=== PATIENT | female | born 1950 | race Caucasian/White ===

== ENCOUNTER 2020-07-18 14:41 | Emergency (ER) | payer MEDICARE, SELFPAY ==
[2020-07-18 14:45] VITALS: BP 134/76; PULSE 76; RESP 19; TEMP 36.6; O2SAT 100; BMI 18.8
[2020-07-18 15:09] LABS: Apearance,Urine Clear (Clear); Bilirubin,Urine Negative (Negative); Blood, Urine Negative (Negative); Color,Urine Yellow (Yellow); Glucose,Urine (UA) Negative (Negative); Ketones,Urine Negative (Negative); Protein,Urine Negative (Negative); UTC Leukocyte Esterase,Urine Negative (Negative); UTC Nitrate,Urine Negative (Negative); Urobilinogen,Urine 0.2 EU/dl (0.2)
--- NOTE | 2020-07-18 15:45 | HMH.EDUTC ---
[facility] Disposition Clinical Impression: Sinusitis Qualifiers: Sinusitis location: unspecified location Chronicity: unspecified Qualified Code(s): J32.9 - Chronic sinusitis, unspecified Disposition: Home, Self-Care Condition on Discharge: Good Instructions: Sinusitis, DI for Sinusitis, Azithromycin Additional Instructions: *Monitor Temp, Over the counter Motrin or Tylenol as directed/as needed Tylenol every 4 hours and Motrin every 6 hours (as long as your family doctor has told you that you can take it) for fever or pain. and straight to ER if unable to lower temp less than 101.0 after medication given *Warm salt water gargles may help to soothe the throat *Throat Lozenges *Warm fluids like tea with honey may help to soothe the throat *Sleep elevated *Humidifier/Vaporizer Make sure to drink plenty of fluids Return if needed Follow up IMMEDIATELY for new or worsening symptoms or no Noticeable improvement over the next 48-72 hours. 911 for difficulty breathing or swallowing Prescriptions: predniSONE [Deltasone 10mg tablet] 10 mg PO DAILY 5 Days #5 tab Transmission Status: Pending to [id number] Azithromycin [Z-Benny 250mg Tab] 250 mg PO DIRECTED #6 tab Transmission Status: Pending to [id number] Referrals: Provider,Referral, [Primary Care Provider] - As needed Time of Disposition: 15:55 Medical Decision Making - Tray Inquiry Pt receiving controlled substance: No Tray was queried for this patient: No Vital Signs: 07/18/20 14:45 Temperature 97.8 F Temperature Source Oral Pulse Rate [Right Brachial] 76 Respiratory Rate 19 Blood Pressure [Right Arm] 134/76 Blood Pressure Mean [Right Arm] 95 Blood Pressure Source [Right Arm] Automatic Cuff Blood Pressure Position [Right Arm] Sitting 02 Sat by Pulse Oximetry 100 Oxygen Delivery Method Room Air - Lab Data Lab results reviewed: Yes: I reviewed the patient's lab results. Lab Results 07/18/20 14:55: Urine Color Yellow, Urine Appearance Clear, Urine pH 6.0, Ur Specific [place] 1.010, Urine Protein Negative, Urine Glucose (UA) Negative, Urine Ketones Negative, Urine Blood Negative, Urine Nitrate Negative, Urine Bilirubin Negative, Urine Urobilinogen 0.2, Ur Leukocyte Esterase Negative Medical Decision Narrative: Patient states that she has taken a zpack and steriods recently without reactions or complications [facility] HPI - General Stated complaint: possible bladder infection and possibe sinus infec Time Seen by Provider: 07/18/20 15:46 Mode of Arrival: Ambulatory Source of Information: Patient Limitations: No Limitations Description of Symptoms (Recalled from Triage Doc. by RN): PATIENT C/O POSSIBLE SINUS AND BLADDER INFECTION X 3 DAYS HEENT Symptoms (Recalled from RN notes): Yes Resp Symptoms (Recalled from RN notes): No Skin Symptoms (Recalled from RN notes): No MS Symptoms (Recalled from RN notes): No Functional Status (Recalled from RN notes): WNL - History of Present Illness Provider Complaint: Patient states that she has been having sinus congestion and pressure for a couple of weeks and thought it was just allergies but over the last few days it has got worse and she is having pressure behind her eyes like she has had with sinus infection State that also she noticed she was having some burning with urination and wanted to get checked for UTI - Related Data Previous Rx's Medication Instructions Recorded Azithromycin [Z-Benny 250mg Tab] 250 mg PO DIRECTED #6 tab 07/18/20 predniSONE [Deltasone 10mg tablet] 10 mg PO DAILY 5 Days #5 tab 07/18/20 Allergies Allergy/AdvReac Type Severity Reaction Status Date / Time nitrofurantoin Allergy Verified 07/18/20 15:12 [From Macrobid] - Worker's Comp Is this a Worker's Comp case?: No [facility] History - Hepatitis A Screen Drug use history?: No High risk sexual behaviors?: No History of sexually transmitted infection?: No Currently employed?: No [employer]
[2020-07-18 16:00] VITALS: BP 134/76; PULSE 76; RESP 16; TEMP 36.6; O2SAT 100
== END 2020-07-18 16:01 | disposition home or self-care (01) ==
PROVIDERS: Emergency Provider Nurse Practitioner
DX: J32.9 Chronic sinusitis, unspecified (principal)
CPT/HCPCS: G0463; 81003; 99202

== ENCOUNTER → 2020-07-25 10:53 | Outpatient (CLI) | payer MEDICARE, SELFPAY ==
[2020-07-25 12:02] LABS: Free T4 (Free Thyroxine) 1.08 ng/dl (0.78-2.19)
[2020-07-26 08:43] LABS: DHEA-Sulfate 24.5 ug/dL (20.4-186.6); Estradiol 17.2 pg/mL (.); Progesterone 1.6 ng/mL (.); Triiodothyronine (T3) Free 3.5 pg/mL (2.0-4.4)
[2020-07-28 12:23] LABS: Testosterone, Total, LC/MS 90.9 ng/dL (7.0-40.0); Testosterone,Free 1.1 pg/mL (0.0-4.2)
== END ==
PROVIDERS: Visit Provider Family Medicine
DX: E03.9 Hypothyroidism, unspecified (principal)
CPT/HCPCS: 36415; 82626; 82670; 84144; 84402; 84403; 84439; 84443; 84481

== ENCOUNTER 2020-07-26 11:24 | Emergency (ER) | payer MEDICARE, SELFPAY ==
[2020-07-26] VITALS (7 sets, daily range): BP systolic 138–183; BP diastolic 68–90; PULSE 67–85; RESP 14–18; TEMP 36.4–36.7; O2SAT 98–100; BMI 18.8
--- NOTE | 2020-07-26 11:37 | HMH.EDGENADL ---
ED Disposition Clinical Impression: Fatigue Qualifiers: Fatigue type: chronic, unspecified Qualified Code(s): R53.82 - Chronic fatigue, unspecified Depression Qualifiers: Depression Type: unspecified Qualified Code(s): F32.9 - Major depressive disorder, single episode, unspecified Disposition: Home, Self-Care Condition on Discharge: Good Instructions: DI for Fatigue, DI for Depression -- Adult Additional Instructions: Follow-up with Татьяна Salazar for depression, call for appointment. Follow-up with a primary care provider, call for appointment. You are being provided with a list of physicians available for follow-up of your condition. Please call a physician on this list to arrange a follow-up appointment as soon as possible. Referrals: Provider,Referral, [Primary Care Provider] - Татьяна Salazar APRN [Nurse Practitioner] - - Critical Care Critical Care Time: No Attestation: On 07/26/20, the high probability of a clinically significant, sudden or life threatening deterioration of the following system(s) required my full and direct attention, intervention and personal management. The time I documented below is in addition to time spent performing reported procedures but includes the following listed in this critical care notation. Medical Decision Making - Tray Inquiry Pt receiving controlled substance: No Vital Signs: 07/26/20 11:25 07/26/20 11:33 07/26/20 12:22 Temperature 97.6 F Temperature Source Oral Pulse Rate 85 76 Pulse Rate [Right] 80 Respiratory Rate 18 14 Blood Pressure 183/84 H 152/76 H Blood Pressure [Right Arm] 181/82 H Blood Pressure Mean [Right Arm] 115 Blood Pressure Source Automatic Cuff Blood Pressure Position Sitting 02 Sat by Pulse Oximetry 98 98 98 Oxygen Delivery Method Room Air Room Air Room Air - Lab Data Lab Results 07/26/20 12:05: WBC 6.9, RBC 4.64, Hgb 15.1, Hct 44.0, MCV 94.7, MCH 32.6 H, MCHC 34.4, RDW 12.7, Plt Count 275, MPV 7.4, Neut % (Auto) 63.7, Lymph % (Auto) 26.4, [place] % (Auto) 7.4, Eos % (Auto) 1.3, Baso % (Auto) 1.3, Neut # (Auto) 4.4, Lymph # (Auto) 1.8, [place] # (Auto) 0.5, Eos # (Auto) 0.1, Baso # (Auto) 0.1 07/26/20 12:05: Sodium 138, Potassium 3.7, Chloride 101, Carbon Dioxide 30, Anion Gap 10.7, BUN 17, Creatinine 0.70, Estimated Creat Clear 41, Estimated GFR 82, Est GFR ( Amer) 100, Glucose 135 H, Calcium 9.8, Total Bilirubin 0.4, AST 40 H, ALT 36, Alkaline Phosphatase 73, Troponin I < 0.01, Total Protein 8.2, Albumin 5.2 H, Globulin 3.0, Albumin/Globulin Ratio 1.7 07/26/20 12:20: Urine Color Yellow, Urine Appearance Clear, Urine pH 7.0, Ur Specific [place] 1.010, Urine Protein Negative, Urine Glucose (UA) Negative, Urine Ketones Negative, Urine Blood Negative, Urine Nitrate Negative, Urine Bilirubin Negative, Urine Urobilinogen 0.2, Ur Leukocyte Esterase Negative, Urine RBC Occasional, Urine WBC Occasional, Ur Squamous Epith Cells 3-5, Urine Bacteria Trace Result diagrams: 07/26/20 12:05 07/26/20 12:05 - Radiology Data #1 Image(s): Chest Image Reviewed: Yes I have reviewed radiologist's interpretation PROCEDURE: XR CHEST 2V CLINICAL HISTORY: fatigue COMPARISON: No exams were available for comparison FINDINGS: The cardiomediastinal silhouette and pulmonary vascularity are within normal limits. The lungs are clear without infiltrates, suspicious nodules, or pleural effusions. Small calcified granuloma right base. No acute bony abnormalities. IMPRESSION: No acute findings. Dictated by: Chu Calles MD 07/26/2020 12:29 Chu Calles MD in [facility] 07/26/2020 12:29 - ECG Data Tracing #1 EKG interpreted by Shay Merchant MD: Rhythm: sinus Rate: 69 [place]: normal Ectopy: none Conduction: normal ST Segment Changes: none T Wave Changes: none Q Waves: none No evidence of acute ischemia or injury Normal electrocardiogram Medical Decision Narrative: Discussed evaluation
--- NOTE | 2020-07-26 11:49 | XR_ITS ---
PROCEDURE: XR CHEST 2V CLINICAL HISTORY: fatigue COMPARISON: No exams were available for comparison FINDINGS: The cardiomediastinal silhouette and pulmonary vascularity are within normal limits. The lungs are clear without infiltrates, suspicious nodules, or pleural effusions. Small calcified granuloma right base. No acute bony abnormalities. IMPRESSION: No acute findings. Dictated by: Chu Calles MD 07/26/2020 12:29 Chu Calles MD in [facility] 07/26/2020 12:29
--- NOTE | 2020-07-26 12:07 | ECG_ITS ---
APPROVED REPORT Exam: Resting ECG HR:69 bpm ECG Measurements Heart Rate 69 AXES OH 142 P 43 QRSd 68 QRS 68 QT 394 T 70 QTc 422 Conclusion Normal sinus rhythm Normal ECG Electronically signed by : Dmitriy Park, 07/26/2020 17:49:22
[2020-07-26 12:23] LABS: Basophils # 0.1 K/mm3 (0-0.2); Basophils % 1.3 % (0.1-2.0); Eosinophils # 0.1 K/mm3 (0.0-0.4); Eosinophils % 1.3 % (0.1-12.0); Hemoglobin 15.1 g/dL (12.2-16.2); Lymphocytes # 1.8 K/mm3 (0.7-4.5); Lymphocytes % 26.4 % (10-50); Mean Corpuscular HGB Conc 34.4 g/dL (31.8-35.4); Mean Corpuscular Hemoglobin 32.6 pg (27.0-31.2); Mean Corpuscular Volume 94.7 fl (81-99); Mean Platelet Volume 7.4 fl (7.4-10.4); Monocytes # 0.5 K/mm3 (0.1-1.0); Monocytes % 7.4 % (1.7-9.3); Neutrophils # 4.4 K/mm3 (1.8-7.8); Neutrophils % 63.7 % (37.0-80.0); Platelet Count 275 K/mm3 (142-424); Red Blood Count 4.64 M/mm3 (4.20-5.40); Red Cell Distribution Width 12.7 % (11.5-17.5); White Blood Count 6.9 K/mm3 (4.8-10.8)
[2020-07-26 12:33] LABS: Albumin Level 5.2 g/dl (3.5-5.0); Albumin/Globulin Ratio 1.7 (1.1-1.8); Alkaline Phosphatase 73 U/L (38-126); Bilirubin,Total 0.4 mg/dl (0.2-1.3); Calcium 9.8 mg/dl (8.4-10.2); Carbon Dioxide 30 mmol/L (22.0-30.0); Glucose 135 mg/dl (74-100); Total Protein,Serum 8.2 g/dl (6.3-8.2)
[2020-07-26 13:01] LABS: Troponin I < 0.01 ng/ml (0.00-0.034)
[2020-07-26 13:06] LABS: Microscopic, Urine URINE MICROSCOPIC (MICROSCOPIC)
[2020-07-26 13:08] LABS: Appearance,Urine CLEAR (Clear); Bilirubin,Urine Negative (Negative); Blood, Urine Negative (Negative); Color,Urine YELLOW (Yellow); Glucose,Urine (UA) Negative (Negative); Ketones,Urine Negative (Negative); Leukocyte Esterase,Urine Negative (Negative); Nitrate,Urine Negative (Negative); Protein,Urine Negative (Negative); Urobilinogen,Urine 0.2 EU/dl (0.2)
[2020-07-26 13:18] LABS: Bacteria,Urine Trace /lpf; RBC,Urine Occasional #/hpf (0-3); WBC,Urine Occasional #/hpf (0-3)
[2020-07-26 13:42] LABS: Alanine Aminotransferase 36 U/L (12-78); Anion Gap 10.7 mEq/L (5-15); Aspartate Amino Transferase 40 U/L (14-36); Blood Urea Nitrogen 17 mg/dl (7-17); Chloride 101 mmol/L (98-107); Creatinine Clearance Estimated 41 mL/min (50-200); Estimated Glomerular Filt Rate 82 ml/min (>60); GFR (African American) 100 ML/MIN (>60); Potassium 3.7 mmoL/L (3.5-5.1); Sodium 138 mmol/L (136-145)
== END 2020-07-26 14:01 | disposition home or self-care (01) ==
PROVIDERS: Emergency Provider Emergency Medicine
DX: F32.9 Major depressive disorder, single episode, unspecified (principal); R53.82 Chronic fatigue, unspecified; R20.2 Paresthesia of skin; R03.0 Elevated blood-pressure reading, without diagnosis of hypertension
CPT/HCPCS: 71046; 80053; 81001; 84484; 85025; 93005; 99282

== ENCOUNTER → 2020-10-03 09:21 | Outpatient (CLI) | payer MEDICARE, SELFPAY ==
[2020-10-03 11:23] LABS: Alanine Aminotransferase 20 U/L (12-78); Albumin Level 4.1 g/dl (3.5-5.0); Alkaline Phosphatase 58 U/L (38-126); Aspartate Amino Transferase 39 U/L (14-36); Bilirubin,Direct 0.5 mg/dl (0.0-0.4); Bilirubin,Indirect 0.1 mg/dL (0.0-0.9); Bilirubin,Total 0.6 mg/dl (0.2-1.3); Bilirubin,Unconjugated 0.1 mg/dL (0.0-1.1); Total Protein,Serum 6.8 g/dl (6.3-8.2)
[2020-10-03 11:41] LABS: 25-OH Vitamin D, Total 60.7 ng/mL (30-100)
[2020-10-03 11:56] LABS: Thyroid Stimulating Hormone 1.56 uIU/mL (0.465-4.68)
[2020-10-03 13:56] LABS: Ferritin 38.2 ng/ml (11.1-264)
[2020-10-03 14:55] LABS: Vitamin B12 808 pg/mL (239-931)
[2020-10-04 12:42] LABS: CA 19-9 20 U/mL (0-35); CEA 1.2 ng/mL (0.0-4.7); Cancer Antigen (CA) 125 31.9 U/mL (0.0-38.1)
[2020-10-04 13:25] LABS: Rapid Plasma Reagin Ab Titer Non Reactive (NonRea<1:1)
== END ==
PROVIDERS: Visit Provider Family Medicine
DX: R41.3 Other amnesia (principal); R53.83 Other fatigue; E03.9 Hypothyroidism, unspecified; E55.9 Vitamin D deficiency, unspecified; R63.4 Abnormal weight loss
CPT/HCPCS: 36415; 80076; 82306; 82378; 82533; 82607; 82728; 82746; 84443; 86316; 86592

== ENCOUNTER → 2020-10-27 15:22 | Outpatient (CLI) | payer MEDICARE, SELFPAY ==
--- NOTE | 2020-10-27 15:25 | CT_ITS ---
PROCEDURE: CT HEAD/BRAIN WO CON CLINICAL INDICATION: ATAXIA, EPISODES OF MEMORY LOSS, HEADACHE COMPARISON: No exams were available for comparison TECHNIQUE: Axial images obtained. All CT scans at the facility use one or more dose reduction, viz: automated exposure control, ma/kV adjustment per patient size (including targeted exams where dose is matched to indication, i.e. head), or iterative reconstruction technique. FINDINGS: No midline shift, mass effect, intracranial hemorrhage, hydrocephalus, or extra-axial fluid collection is evident. There is generalized atrophy with hypoattenuation of the periventricular white matter consistent with microangiopathic changes. There is a small linear area of increased density along the posterior aspect of the left frontal lobe at the suprasellar cistern laterally which may represent the anterior communicating artery and the middle cerebral artery is slightly hyperdense. This may also be due to partial volume averaging artifact. The calvarium has an unremarkable appearance. No mastoid effusion. No sinus air-fluid level. IMPRESSION: No definite acute finding. Hyperdensity of the left proximal middle cerebral artery and anterior communicating artery raising the suspicion of thrombosis or atherosclerotic change this partial volume averaging artifact. CT angiography may provide further evaluation. Dictated by: Barney Lemus MD 10/30/2020 11:22 Barney Lemus MD in [facility] 10/30/2020 11:22
== END ==
PROVIDERS: PCP Family Medicine; Visit Provider Family Medicine
DX: R27.0 Ataxia, unspecified (principal); R41.3 Other amnesia; R51.9 Headache, unspecified; R53.1 Weakness; H81.09 Meniere's disease, unspecified ear
CPT/HCPCS: 70450

== ENCOUNTER → 2020-11-14 12:25 | Outpatient (CLI) | payer MEDICARE, SELFPAY ==
--- NOTE | 2020-11-14 12:37 | CT_ITS ---
Procedure: CT ANGIO HEAD CLINICAL HISTORY: ABN CT,DIZZINESS,HEADACHE COMPARISON: CT CT HEAD/BRAIN WO CON from 10/27/2020 TECHNIQUE: IV Contrast: 100ml Isovue 370 Axial images obtained with sagittal and coronal reformats. All CT scans at the facility use one or more dose reduction, viz: automated exposure control, ma/kV adjustment per patient size (including targeted exams where dose is matched to indication, i.e. head), or iterative reconstruction technique. FINDINGS: There is no evidence of vascular occlusion. The middle cerebral artery and A1 segment of the left anterior cerebral artery are widely patent. CT abnormality was likely due to partial volume averaging artifact from the overlying kilgore matter. No aneurysm, AVM, or major intracranial occlusive process. The [id number] has an unremarkable appearance. Posterior circulation is also unremarkable. There is persistent origin of both posterior cerebral arteries as a normal variant. No sinus thrombosis apparent. No enhancing lesions. IMPRESSION: Negative CTA of the brain Dictated by: Barney Lemus MD 11/15/2020 08:19 Barney Lemus MD in [facility] 11/15/2020 08:19
[2020-11-14 13:11] LABS: Blood Urea Nitrogen 11 mg/dl (7-17); Estimated Glomerular Filt Rate 122 ml/min (>60); GFR (African American) 147 ML/MIN (>60)
== END ==
PROVIDERS: PCP Family Medicine; Visit Provider Family Medicine
DX: R93.0 Abnormal findings on diagnostic imaging of skull and head, not elsewhere classified (principal)
CPT/HCPCS: 36415; 70496; 82565; 84520; Q9967

== ENCOUNTER → 2020-12-21 10:40 | Outpatient (CLI) | payer MEDICARE, SELFPAY ==
[2020-12-21 12:55] LABS: Thyroid Stimulating Hormone 0.75 uIU/mL (0.465-4.68)
[2020-12-21 13:30] LABS: Folate > 20.00 ng/mL
[2020-12-21 21:11] LABS: Vitamin B12 623 pg/mL (239-931)
[2020-12-26 00:07] LABS: Methylmalonic Acid 234 nmol/L (0-378)
== END ==
PROVIDERS: Visit Provider Psychiatry & Neurology Neurology
DX: R41.3 Other amnesia (principal)
CPT/HCPCS: 36415; 82131; 82607; 82746; 84439; 84443; 86618

== ENCOUNTER 2020-12-21 11:05 | Emergency (ER) | payer MEDICARE, MEDICAID, SELFPAY ==
[2020-12-21 12:31] VITALS: BP 168/84; PULSE 75; RESP 18; TEMP 36.6; O2SAT 98; BMI 20.5
--- NOTE | 2020-12-21 12:37 | HMH.EDUTC ---
[facility] Disposition Clinical Impression: Sinusitis Qualifiers: Sinusitis location: unspecified location Chronicity: acute Recurrence: non-recurrent Qualified Code(s): J01.90 - Acute sinusitis, unspecified Disposition: Home, Self-Care Condition on Discharge: Good Instructions: Sinusitis Additional Instructions: Drink plenty of fluids. Take tylenol or ibuprofen for pain or fever. Take the medications as directed. Follow up with your regular doctor. GO TO THE ER FOR ANY WORSENING SYMPTOMS Prescriptions: Benzonatate [Benzonatate 100mg cap] 100 mg PO TIDP PRN #30 cap PRN Reason: Cough Transmission Status: Received by [facility] methylPREDNISolone [Medrol] 4 mg PO DIRECTED 6 Days #21 packet Transmission Status: Received by [facility] Azithromycin [Z-Benny 250mg Tab*] 250 mg PO UD DOSE PK #6 tab Transmission Status: Received by [facility] Referrals: Marco Antonio Simon MD [Primary Care Provider] - Time of Disposition: 12:53 Medical Decision Making - Medical Records Medical records reviewed: Yes: I reviewed the patient's medical records. - Tray Inquiry Pt receiving controlled substance: No Vital Signs: 12/21/20 12:31 12/21/20 13:14 Temperature 97.8 F 97.8 F Temperature Source Oral Pulse Rate 75 Pulse Rate [Left] 75 Respiratory Rate 18 18 Blood Pressure 168/84 H Blood Pressure [Right Arm] 168/84 H Blood Pressure Mean [Right Arm] 112 02 Sat by Pulse Oximetry 98 - Lab Data Lab results reviewed: No: I reviewed the patient's lab results. [facility] HPI - General Stated complaint: sore throat, congestion, cough Time Seen by Provider: 12/21/20 12:38 Mode of Arrival: Ambulatory Source of Information: Patient Limitations: No Limitations Description of Symptoms (Recalled from Triage Doc. by RN): pt c/o sinus pressure and drainage. pt thinks she has a sinus infection. HEENT Symptoms (Recalled from RN notes): Yes (sinus pressure and drainage) Resp Symptoms (Recalled from RN notes): No Skin Symptoms (Recalled from RN notes): No MS Symptoms (Recalled from RN notes): No Functional Status (Recalled from RN notes): na - History of Present Illness Provider Complaint: She c/o sinus congestion and feeling bad for the past 2 days. She states she usually gets a sinus infection this time of the year and that is what she feels like she is getting now. She has been vaccinated agaist covd-19 and influenza this season. - Related Data Home Medications Medication Instructions Recorded Confirmed cetirizine 10 mg tablet 10 mg PO tab 10/13/20 10/13/20 clonazepam 1 mg tablet 1 mg PO tab 10/13/20 10/13/20 duloxetine 30 mg capsule,delayed 30 mg PO cap 10/13/20 10/13/20 release levothyroxine 25 mcg tablet 25 mcg PO tab 10/13/20 10/13/20 liothyronine 5 mcg tablet 5 mcg PO tab 10/13/20 10/13/20 Previous Rx's Medication Instructions Recorded Azithromycin [Z-Benny 250mg Tab*] 250 mg PO UD DOSE PK #6 tab 12/21/20 Benzonatate [Benzonatate 100mg 100 mg PO TIDP PRN #30 cap 12/21/20 cap] methylPREDNISolone [Medrol] 4 mg PO DIRECTED 6 Days #21 12/21/20 packet Allergies Allergy/AdvReac Type Severity Reaction Status Date / Time nitrofurantoin Allergy Verified 10/13/20 13:20 [From Shippabled] - Worker's Comp Is this a Worker's Comp case?: No [facility] History - Hepatitis A Screen Drug use history?: No High risk sexual behaviors?: No History of sexually transmitted infection?: No Currently employed?: No Childcare worker?: No Do you have indoor plumbing?: Yes Do you have electricity?: Yes Attestation statement:: This patient has been screened for Hepatitis A risk factors. I have reviewed the patient's past medical history: Yes Medical History: Reports:: Anxiety, Cancer Other Medical History: Reports: Thyroid Disease Other Surgeries: Yes: Colonoscopy - Social History Smoking Status: Never smoker Alcohol Intake: never Occupationa
[2020-12-21 13:14] VITALS: BP 168/84; PULSE 75; RESP 18; TEMP 36.6
== END 2020-12-21 13:23 | disposition home or self-care (01) ==
PROVIDERS: Emergency Provider Nurse Practitioner Family; PCP Family Medicine
DX: J01.90 Acute sinusitis, unspecified (principal); F41.9 Anxiety disorder, unspecified
CPT/HCPCS: G0463; 36415; 82131; 82607; 82746; 84439; 84443; 86618; 99202

== ENCOUNTER 2020-12-27 12:25 | Emergency (ER) | payer MEDICARE, MEDICAID, SELFPAY ==
[2020-12-27 12:45] VITALS: BP 134/62; PULSE 91; RESP 21; TEMP 36.7; O2SAT 98
--- NOTE | 2020-12-27 13:20 | HMH.EDUTC ---
[facility] Disposition Clinical Impression: Sinusitis Qualifiers: Sinusitis location: unspecified location Chronicity: unspecified Qualified Code(s): J32.9 - Chronic sinusitis, unspecified Disposition: Home, Self-Care Condition on Discharge: Good Instructions: Sinusitis, DI for Sinusitis Additional Instructions: *Monitor Temp, Over the counter Motrin or Tylenol as directed/as needed Tylenol every 4 hours and Motrin every 6 hours (as long as your family doctor has told you that you can take it) for fever or pain. and straight to ER if unable to lower temp less than 101.0 after medication given *Warm salt water gargles may help to soothe the throat *Throat Lozenges *Warm fluids like tea with honey may help to soothe the throat *Sleep elevated *Humidifier/Vaporizer *Flonase 2 sprays in each nostril daily but be aware that it may take 2-3 days before you notice improvement Follow up IMMEDIATELY for new or worsening symptoms or no Noticeable improvement over the next 48-72 hours. 911 for difficulty breathing or swallowing You were tested for today for COVID19 your test result should be back in the next 24-48 hours, you may check your results on the [facility] my health portal if you have trouble logging on or viewing your results you may call You was given a handout with instructions for Self Quarantine and Self isolation for while you wait on test results and what to do if they are positive If you are positive the Health Dept will be contacting you also Make sure to take your Vitamins Vit. C Vit D and Zinc if you can take them Prescriptions: Fluticasone Propionate [Flonase 50mcg nasal spray 16gm] 1 spr NS DAILY #1 each Transmission Status: Received by [id number] Referrals: Marco Antonio Simon MD [Primary Care Provider] - Time of Disposition: 13:45 Medical Decision Making - Tray Inquiry Pt receiving controlled substance: No Tray was queried for this patient: No Vital Signs: 12/27/20 12:45 12/27/20 14:00 Temperature 98.0 F 98.0 F Temperature Source Oral Pulse Rate 91 H Pulse Rate [Right Brachial] 91 H Respiratory Rate 21 21 Blood Pressure 134/62 Blood Pressure [Right Arm] 134/62 Blood Pressure Mean [Right Arm] 86 Blood Pressure Source [Right Arm] Automatic Cuff Blood Pressure Position [Right Arm] Sitting 02 Sat by Pulse Oximetry 98 Oxygen Delivery Method Room Air Orders (Tests/Meds): ED MEDICATIONS Discontinued Medications Generic Name Dose Route Start Last Admin Trade Name Corire PRN Reason Stop Dose Admin Ceftriaxone Sodium 1 gm 12/27/20 13:40 12/27/20 13:59 Ceftriaxone 1gm Vial IM 12/27/20 13:41 1 gm ONCE ONE Administration Lidocaine HCl 0 ml 12/27/20 13:40 12/27/20 13:59 Lidocaine 1% 5ml Pf Vial IM 12/27/20 13:41 2.1 ml ONCE ONE Administration [facility] HPI - General Stated complaint: cough, runny nose, RODRIGUEZ, congestion Time Seen by Provider: 12/27/20 13:20 Mode of Arrival: Ambulatory Source of Information: Patient Limitations: No Limitations Description of Symptoms (Recalled from Triage Doc. by RN): PATIENT STATES SHE WAS SEEN HERE LAST WEEK AND TREATED FOR SINUS INFECTION BUT REPORTS SHE IS NOT FEELING BETTER HEENT Symptoms (Recalled from RN notes): Yes Resp Symptoms (Recalled from RN notes): No Skin Symptoms (Recalled from RN notes): No MS Symptoms (Recalled from RN notes): No Functional Status (Recalled from RN notes): WNL - History of Present Illness Provider Complaint: Patient states that she was seen and treated last week in the [facility] for sinus infection State that she has taken the medication but doesnt feel like it helped she is still having sinus congestion and pressure States that she came in wanting to get checked again and see if she can get a shot for it - Related Data Home Medications Medication Instructions Recorded Confirmed cetirizine 10 mg tablet 10 mg PO tab 10/13/20 10/13/20 clonazepam 1 mg tablet 1 mg PO tab 10/13/20 10/13/20 du
[2020-12-27 14:00] VITALS: BP 134/62; PULSE 91; RESP 21; TEMP 36.7; O2SAT 98
== END 2020-12-27 14:10 | disposition home or self-care (01) ==
PROVIDERS: Emergency Provider Nurse Practitioner; PCP Family Medicine
DX: U07.1 COVID-19 (principal); J32.9 Chronic sinusitis, unspecified; F41.9 Anxiety disorder, unspecified
CPT/HCPCS: G0463; 96372; 99202; C9803; U0003; U0005

== ENCOUNTER 2021-01-04 07:53 | Outpatient (CLI) | payer MEDICARE, MEDICAID, SELFPAY ==
[2021-01-04] VITALS (9 sets, daily range): BP systolic 131–136; BP diastolic 72–78; PULSE 73–79; RESP 14–18; TEMP 36.7; O2SAT 98–100
--- NOTE | 2021-01-04 07:59 | PC.NURSE ---
Notified pharmacy that pt has arrived for her infusion.
== END 2021-01-04 10:30 | disposition home or self-care (01) ==
LOC: INF 07:55
PROVIDERS: PCP Family Medicine; Visit Provider Family Medicine
DX: U07.1 COVID-19 (principal); Z23 Encounter for immunization
CPT/HCPCS: 96365